=== PATIENT | female | born 1985 | race Caucasian/White ===

== ENCOUNTER 2018-07-05 13:10 | Emergency (ER) | payer SELFPAY ==
[~2018-07-05] VITALS: Ht 172.7 cm; Wt 72.7 kg
[2018-07-05] MEDS ORDERED: TraMADol HCL 50 MG TABLET PO ONE (16:15)
[2018-07-05] MEDS ORDERED: MAALOX/LIDOCAINE/NYSTATIN SUSP 5 ML ORAL.SYG MM ONE (16:30)
[2018-07-05 17:04] VITALS: BP 108/63
== END 2018-07-05 17:44 | disposition home or self-care (01) ==
LOC: EMS 13:12
DX: K12.2 Cellulitis and abscess of mouth (principal); F17.210 Nicotine dependence, cigarettes, uncomplicated; Z88.6 Allergy status to analgesic agent; Z88.8 Allergy status to other drugs, medicaments and biological substances
CPT/HCPCS: 41800; 42000; 99283; 99284; 99406